=== PATIENT | male | born 1960 | race Caucasian/White ===

== ENCOUNTER 2024-12-01 06:20 | Day surgery (SDC) | payer MEDICARE, OTHER, SELFPAY | END 2024-12-01 15:07 | disposition home or self-care (01) | LOC: GI 06:20 | PROVIDERS: ATTENDING PHYSICIAN Internal Medicine; FAMILY PHYSICIAN Nurse Practitioner | DX: Z12.11 Encounter for screening for malignant neoplasm of colon (principal); K57.30 Diverticulosis of large intestine without perforation or abscess without bleeding; K51.40 Inflammatory polyps of colon without complications | CPT/HCPCS: 45385; 88305 ==